=== PATIENT | male | born 1955 | race Caucasian/White ===

== ENCOUNTER 2021-05-10 17:55 | Emergency (ER) | payer MEDICARE, SELFPAY ==
[2021-05-10 18:43] VITALS: BP 161/97; PULSE 74; RESP 20; TEMP 37.1; O2SAT 95; BMI 33.6
--- NOTE | 2021-05-10 19:09 | HMH.EDUTC ---
[facility] [place] Clinical Impression: Sinusitis Qualifiers: Sinusitis location: unspecified location Chronicity: unspecified Qualified Code(s): J32.9 - Chronic sinusitis, unspecified Disposition: Home, Self-Care Condition on Discharge: Good Instructions: Sinusitis, DI for Sinusitis, Benzonatate Additional Instructions: ? Start antibiotic today. Be sure to complete entire prescription even if feeling better ? Monitor temp. Tylenol every 4 hours as needed and / or ibuprofen every 6 hours as needed ( As long as your primary care physician has told you that it ok to take both. For fever/aches/pains ER if no less than 101 despite Tylenol or Motrin ? Humidifier/vaporizer or hot steamy shower ? Inhaler every 4-6 hours as needed like we discussed. If unsure how to use it, ask pharmacist to demonstrate how. Should help open airways and improve cough, wheezing, and shortness of breath *Tessalon Perles will not cause drowsiness but use at bedtime to help stop cough so that you may get some rest. *Take steroid as prescribed. Helps with inflammation therefore, cough and wheezing. Follow directions on the package. Reviewed side effects. Patient reports taking them before. Follow up IMMEDIATELY for new or worsening of symptoms OR no noticeable improvement over the next 48-72 hours. 911 immediately for any life threatening symptoms such as chest pain or difficulty breathing Prescriptions: predniSONE [Deltasone 10mg tablet] 10 mg PO BID 5 Days #10 tab Transmission Status: Received by [id number] Azithromycin [Z-Marcelino 250mg Tab] 250 mg PO DIRECTED #6 tab Transmission Status: Received by [id number] Referrals: Provider,Referral, [Primary Care Provider] - As needed Time of Disposition: 19:43 Medical Decision Making - Lopez Inquiry Pt receiving controlled substance: No Lopez was queried for this patient: No Vital Signs: 05/10/21 18:43 05/10/21 19:32 Temperature 98.8 F 98.8 F Temperature Source Oral Pulse Rate 60 Pulse Rate [Left] 74 Respiratory Rate 20 20 Blood Pressure 161/97 H Blood Pressure [Right Arm] 161/97 H Blood Pressure Mean [Right Arm] 118 02 Sat by Pulse Oximetry 95 Orders (Tests/Meds): ED MEDICATIONS Discontinued Medications Generic Name Dose Route Start Last Admin Trade Name Freq PRN Reason Stop Dose Admin Ceftriaxone Sodium 1 gm 05/10/21 19:21 05/10/21 19:32 Ceftriaxone 1gm Vial IM 05/10/21 19:22 1 gm ONCE ONE Administration Lidocaine HCl 0 ml 05/10/21 19:21 05/10/21 19:31 Lidocaine 1% 5ml Pf Vial IM 05/10/21 19:22 2.5 ml ONCE ONE Administration Methylprednisolone Sodium Succinate 125 mg 05/10/21 19:21 05/10/21 19:31 Methylprednisolone Sod Succ 125mg Vial IM 05/10/21 19:22 125 mg ONCE ONE Administration [facility] [place] - General Stated complaint: cough congestion Time Seen by Provider: 05/10/21 19:10 Mode of Arrival: Ambulatory Source of Information: Patient Limitations: No Limitations Description of Symptoms (Recalled from Triage Doc. by RN): pt c/o a cough and congestion x1.5 wk. HEENT Symptoms (Recalled from RN notes): Yes (congestion) Resp Symptoms (Recalled from RN notes): Yes (cough) Skin Symptoms (Recalled from RN notes): No MS Symptoms (Recalled from RN notes): No Functional Status (Recalled from RN notes): wnl - History of Present Illness Provider Complaint: Patient states that he has benhving sinus congestion and pressure for about a week and half and cough States that he has history of asthma and when he gets coughing it causes his asthma to flare up States that he feels like it is draining in the back of his throat and causing his throat to be irritated and raw - Related Data Previous Rx's Medication Instructions Recorded Azithromycin [Z-Marcelino 250mg Tab] 250 mg PO DIRECTED #6 tab 05/10/21 predniSONE [Deltasone 10mg tablet] 10 mg PO BID 5 Days #10 tab 05/10/21 Allergies Allergy/AdvReac Type Severity Reactio
[2021-05-10 19:32] VITALS: BP 161/97; PULSE 60; RESP 20; TEMP 37.1
== END 2021-05-10 19:55 | disposition home or self-care (01) ==
PROVIDERS: Emergency Provider Nurse Practitioner
DX: J32.9 Chronic sinusitis, unspecified (principal); J45.909 Unspecified asthma, uncomplicated
CPT/HCPCS: 96372; 99202; G0463

== ENCOUNTER 2021-06-10 14:20 | Emergency (ER) | payer MEDICARE, SELFPAY ==
[2021-06-10 15:01] VITALS: BP 130/79; PULSE 107; RESP 18; O2SAT 96; BMI 34.7
[2021-06-10 16:25] VITALS: BP 130/79; PULSE 107; RESP 18; TEMP 37.6; O2SAT 96; BMI 34.8
[2021-06-10 16:34] LABS: UTC Influenza B Antigen Negative (Negative)
[2021-06-10 16:37] LABS: UTC Influenza A Antigen Positive (Negative)
--- NOTE | 2021-06-10 16:49 | HMH.EDUTC ---
[facility] [place] Clinical Impression: Influenza A Disposition: Home, Self-Care Condition on Discharge: Good Instructions: Influenza, DI for Influenza -- Adult, Oseltamivir Additional Instructions: ? Start Tamiflu today if you are going to take it. Discussed risk and possible benefits. ? Lots of rest ? Increase Fluids water, Gatorade, powerade, pedialyte,if /toddler/child ? Alternate Tylenol and / or ibuprofen as discussed for fever, aches, chills Follow up IMMEDIATELY with your family doctor for new or worsening Symptoms OR no noticeable improvement over the next 48-72 hours, 911 for difficulty or breathing ? You or your child area contagious until no fever, aches, chills for 24 hours with medication for symptoms ? Help Prevent the spread of influenza: ? Wash your hands often. Use soap and water. Wash your hands after you use the bathroom, change a child's diapers, or sneeze. Wash your hands before you prepare or eat food. Use gel hand cleanser that has 60% alcohol, when soap and water are not available. Do not touch your eyes, nose, or mouth unless you have washed your hands first. ? Cover your mouth when you sneeze or cough. Cough into a tissue or the bend of your arm. If you use a tissue, throw it away immediately and wash your hands. ? Clean shared items with a germ-killing hand fur cleaner. Clean table surfaces, doorknobs, and light switches. Do not share towels, silverware, and dishes with people who are sick. Wash bed sheets, towels, silverware, and dishes with soap and water. ? Wear a mask over your mouth and nose if you are sick. The face mask may help protect others from becoming infected with the flu. Wear the mask when in common areas of your home or if you seek care with a healthcare provider. ? Stay away from others if you are sick. Stay at home until 24 hours after your fever and symptoms are gone. You were tested for today for COVID19 your test result should be back in the next 24-48 hours, you may check your results on the [facility] My Health Portal if you have trouble logging on you may call You was given a handout with instructions for Self Quarantine and Self isolation for while you wait on test results and what to do if they are positive If you are positive the Health Dept will be contacting you also Make sure to take your Vitamins Vit. C Vit D and Zinc if you can take them Prescriptions: Albuterol Sulfate [Proventil-HFA 90mcg/puff Inh] 1 - 2 puffs IH Q6HP PRN #1 each PRN Reason: Shortness Of Breath Transmission Status: [facility] Promethazine/Dextromethorphan [Promethazine-Dm Syrup] 2.5 - 5 ml PO Q6H PRN #100 ml PRN Reason: Cough Transmission Status: Received by [facility] Oseltamivir Phosphate [Tamiflu 75mg Capsule] 75 mg PO BID #10 cap Transmission Status: Received by [facility] Referrals: Provider,Referral, MD [Primary Care Provider] - As needed Time of Disposition: 17:10 Medical Decision Making - Lopez Inquiry Pt receiving controlled substance: No Lopez was queried for this patient: No Vital Signs: 06/10/21 15:01 06/10/21 16:25 06/10/21 17:10 Temperature 99.6 F 99.6 F Temperature Source Oral Pulse Rate 107 H Pulse Rate [Left Radial] 107 H 107 H Respiratory Rate 18 18 18 Blood Pressure 130/79 Blood Pressure [Right Arm] 130/79 130/79 Blood Pressure Mean [Right Arm] 96 96 Blood Pressure Source [Right Arm] Automatic Cuff Automatic Cuff Blood Pressure Position [Right Arm] Sitting Sitting 02 Sat by Pulse Oximetry 96 96 Oxygen Delivery Method Room Air Room Air - Lab Data Lab results reviewed: Yes: I reviewed the patient's lab results. Lab Results 06/10/21 16:33: Influenza Type A Ag Positive A, Influenza Type B Ag Negative Orders (Tests/Meds): ORDERS Category Date Time Status Covid-19 Nasal PCR ([facility]) Routine Lab 06/10/21 16:20 Received Medical Decision Narrative: Patient states that he has a nebulizer at his storage unit Sta
[2021-06-10 17:10] VITALS: BP 130/79; PULSE 107; RESP 18; TEMP 37.6; O2SAT 96
== END 2021-06-10 17:19 | disposition home or self-care (01) ==
PROVIDERS: Emergency Provider Nurse Practitioner
DX: J10.1 Influenza due to other identified influenza virus with other respiratory manifestations (principal); Z20.822 Contact with and (suspected) exposure to COVID-19
CPT/HCPCS: G0463; 87804; 99202; C9803; U0003; U0005

== ENCOUNTER 2024-04-17 18:18 | Emergency (ER) | payer MEDICARE, SELFPAY ==
[2024-04-17 18:19] VITALS: BP 183/92; PULSE 84; RESP 20; TEMP 36.4; O2SAT 95; BMI 32.3
--- NOTE | 2024-04-17 18:21 | XR_ITS ---
PROCEDURE INFORMATION: Exam: XR Chest Exam date and time: 04/17/2024 6:25 PM Age: 69 years old Clinical indication: Cough and fever; Additional info: Cough, fever hypoxemia TECHNIQUE: Imaging protocol: Radiologic exam of the chest. Views: 2 views. COMPARISON: No relevant prior studies available. FINDINGS: Lungs: No consolidation. Pleural spaces: No significant pleural effusion. No pneumothorax. Heart/Mediastinum: No cardiomegaly. Bones/joints: No displaced fracture. Soft tissues: Unremarkable. IMPRESSION: No definite acute cardiopulmonary disease. If symptoms persist, consider CT for further evaluation.
[2024-04-17 18:25] VITALS: BP 183/92; PULSE 84; O2SAT 95
--- NOTE | 2024-04-17 18:25 | ECG_ITS ---
APPROVED REPORT Exam: Resting ECG HR:84 bpm ECG Measurements Heart Rate 84 AXES NH 142 P 65 QRSd 152 QRS -57 QT 378 T 85 QTc 419 Conclusion Sinus rhythm Left axis deviation (Branch block Electronically signed by : BLADIMIR ST, 04/17/2024 22:48:53
[2024-04-17 18:30] VITALS: BP 188/97; PULSE 85; O2SAT 95
[2024-04-17 18:31] LABS: Coronavirus 19, PCR Not Detected (NotDetected); Influenza A, PCR Not Detected (NotDetected); Influenza B, PCR Not Detected (NotDetected)
--- NOTE | 2024-04-17 18:49 | ED_ITS ---
Discharge Plan Disposition Chief Complaint: Upper Respiratory Infection Prescriptions Prescriptions: New doxycycline hyclate 100 mg capsule 100 mg PO BID 7 Days Qty: 14 0RF prednisone 20 mg tablet 40 mg PO DAILY 5 Days Qty: 10 0RF No Action promethazine-DM 120 ML syrup 2.5 - 5 ml PO Q6H PRN (Reason: Cough) Qty: 100 0RF oseltamivir 75 MG capsule 75 mg PO BID Qty: 10 0RF albuterol sulfate 200 PUFFS HFA aerosol inhaler 1 - 2 puffs IH Q6HP PRN (Reason: Shortness Of Breath) Qty: 1 0RF Referrals Follow up/Referrals: Provider,Referral, MD [Referring] - See instructions Activity Restrictions/Add. Instructions Additional Instructions/Restrictions: Call your family doctor to establish care for this visit to the emergency department and schedule follow-up within 48 hours to ensure improvement. If you have any worsening of your condition or any other concerning signs or symptoms, return to the emergency department or your primary care doctor for further evaluation. Prednisone each morning for the next 5 days, doxycycline for entire course. Clinical Impressions Clinical Impression: Bronchitis Print Language Print Language: Andorran Discharge ED Provider: Mike Broderick General Adult HPI General Chief complaint: Upper Respiratory Infection Stated complaint: sent by phy-low O2, cough fever Time Seen by Provider: 04/17/24 18:21 Mode of Arrival: Ambulatory Source of Information: Patient Limitations: No Limitations Description of Symptoms (Recalled from ER Triage Doc. by RN): States he went to the doctor today and they told him that his oxygen saturation was low and that he had a temp of 99.3. Complaint of cough and congestion for 1 month. History of Present Illness HPI narrative: Please note that above description of symptoms, in this electronic medical record under categorization of recalled from ER triage doctor by RN are reflective of an initial nursing assessment, however, is not reflective of my full history and physical exam that was personally taken and clarified. Consequentially, this preceding description of symptoms, which may include the patient's categorized chief complaint in the EMR, do not reflect my personal clinical impression, and the ultimate description of history of present illness and patient stated complaints should be deferred to this section of the note. Unless stated otherwise or congruent with this section of the note, additional signs, symptoms, or incongruence should be interpreted as inaccurate with my clinical impression. Related Data Previous Rx's ?Medication ?Instructions ?Recorded albuterol sulfate 90 mcg/actuation 1 - 2 puffs IH Q6HP PRN Shortness 06/10/21 aerosol inhaler Of Breath #1 ea oseltamivir 75 mg capsule 75 mg PO BID #10 caps 06/10/21 promethazine-DM 6.25 mg-15 mg/5 mL 2.5 - 5 ml PO Q6H PRN Cough #100 mL 06/10/21 oral syrup doxycycline hyclate 100 mg capsule 100 mg PO BID 7 days #14 caps 04/17/24 prednisone 20 mg tablet 40 mg (2 x 20 mg) PO DAILY 5 days 04/17/24 #10 tabs Allergies Allergy/AdvReac Type Severity Reaction Status Date / Time No Known Allergies Allergy Verified 05/10/21 18:48 [facility] Disclaimer: The information contained in this section may have been updated after the patient was seen, as this information can be updated by other users. Social History Smoking Status: Former smoker alcohol intake: never current occupational status: retired Travel in the last 8 weeks: None ROS Obtained: Yes All systems reviewed & no additional complaints except as documented Physical Exam General General appearance: alert and obese Head Head exam: atraumatic and normocephalic Eye Eye exam: Present normal appearance, PERRL and EOMI Neck Neck exam: Present normal inspection, full ROM and trachea midline Respiratory Respiratory exam: Present wheezes (Isolated wheezes right sided posteriorly and inferiorly. Intermittently coughing); Absent respiratory distress, stridor, accessory muscle use or prolonged expiratory phase Cardiovascular Cardiovascular exam: Present regular rate, normal rhythm and other (Pulses equal symmetric in upper and lower extremities) Abdominal Exam Abdominal exam: Present soft; Absent distention, tenderness or pulsatile mass Extremities Exam Extremities exam: Absent edema Neurological Exam Neurological exam: Present alert, oriented X3 and CN II-XII intact; Absent motor sensory deficit Skin Skin exam: Present warm and dry; Absent diaphoresis or erythema Medical Decision Making Medical Records Medical records reviewed: Yes I reviewed the patient's medical records. Screening: Per USPSTF and CDC recommendations, given the prevalence of disease in our region, it is our hospital?s policy to screen for HIV and viral Hepatitis for all patients aged 18 and over and those with ongoing risk factors. Lopez Inquiry Pt receiving controlled substance: No Lopez was queried for this patient: No Vital Signs: 04/17/24 18:19 04/17/24 18:25 04/17/24 18:30 Temperature 97.6 F Temperature Source Oral Pulse Rate 84 85 Pulse Rate [Radial] 84 Respiratory Rate 20 Blood Pressure 183/92 H 188/97 H Blood Pressure [Right Arm] 183/92 H Blood Pressure Mean Blood Pressure Mean [Right Arm] 122 Blood Pressure Source [Right Arm] Automatic Cuff Blood Pressure Position [Right Arm] Sitting 02 Sat by Pulse Oximetry 95 95 95 Oxygen Delivery Method Room Air Room Air Room Air 04/17/24 19:00 Temperature Temperature Source Pulse Rate 95 H Pulse Rate [Radial] Respiratory Rate Blood Pressure 128/69 Blood Pressure [Right Arm] Blood Pressure Mean 88 Blood Pressure Mean [Right Arm] Blood Pressure Source [Right Arm] Blood Pressure Position [Right Arm] 02 Sat by Pulse Oximetry 96 Oxygen Delivery Method Lab Data Lab Results 04/17/24 18:26: SARS-CoV-2 (PCR) Not detected, Influenza A Untype (PCR) Not detected, Influenza Type B (PCR) Not detected 04/17/24 18:42: VBG pH 7.37, VBG pCO2 43.1, VBG pO2 50.8 H, VBG HCO3 24.1, VBG Total CO2 25.5, VBG O2 Saturation 85.9 H, VBG Base Excess -1.2, VBG Lactic Acid 2.0 04/17/24 18:46: WBC 11.8 H, RBC 4.58 L, Hgb 14.7, Hct 42.9, MCV 93.6, MCH 32.2 H , MCHC 34.4, RDW 12.8, Plt Count 232, MPV 7.6, Neut % (Auto) 74.8, Lymph % (Auto) 17.9, Glynn % (Auto) 5.2, Eos % (Auto) 1.7, Baso % (Auto) 0.4, Neut # (Auto) 8.8 H, Lymph # (Auto) 2.1, Glynn # (Auto) 0.6, Eos # (Auto) 0.2, Baso # (Auto) 0.1, Sodium 135 L, Potassium 4.1, Chloride 102, Carbon Dioxide 26, Anion Gap 11.1, BUN 10, Creatinine 0.80, Estimated Creat Clear 84, Estimated GFR 95, Est GFR ( Amer) 115, Glucose 148 H, Calcium 9.3, Total Bilirubin 0.6, AST 22, ALT 30, Alkaline Phosphatase 48, Troponin I < 0.01, NT-Pro-B Natriuret Pep 75.9, Total Protein 6.8, Albumin 3.9, Globulin 2.9, Albumin/Globulin Ratio 1.3 04/17/24 18:46 04/17/24 18:46 Orders (Tests/Meds): ED MEDICATIONS Generic Name Dose Route Start Last Admin Trade Name Freq PRN Reason Stop Dose Admin Sodium Chloride 10 ml 04/17/24 18:49 Sodium Chloride 0.9% 10ml Flush Syringe IV 05/17/24 18:48 NEEDED PRN Maintain IV Site Discontinued Medications Generic Name Dose Route Start Last Admin Trade Name Freq PRN Reason Stop Dose Admin Albuterol/Ipratropium 9 ml 04/17/24 18:21 04/17/24 18:51 Ipratropium/Albuterol 3 Ml Neb IH 04/17/24 18:22 9 ml ONCE ONE Administration Methylprednisolone Sodium Succinate 125 mg 04/17/24 18:21 04/17/24 18:51 Methylprednisolone Sod Succ 125mg Vial IV 04/17/24 18:22 125 mg ONCE ONE Administration ORDERS Category Date Time Status CXR 2 view (NOT portable) [XR chest 2V] Stat Exams 04/17/24 18:21 Completed Complete Blood Count Auto Diff Stat Lab 04/17/24 18:46 Completed Comprehensive Metabolic Panel Stat Lab 04/17/24 18:46 Completed HIV (1&2) Antibody Rapid Stat Lab 04/17/24 18:46 Received Hep C Ab with Reflex to RNA Stat Lab 04/17/24 18:46 Received NT Pro Brain Natriuretic Pep. Stat Lab 04/17/24 18:46 Completed Rapid PCR Covid and Flu A/B Stat Lab 04/17/24 18:26 Completed Trop I [Troponin I] Stat Lab 04/17/24 18:46 Completed Troponin I Q3H Lab 04/17/24 21:45 Ordered Troponin I Q3H Lab 04/18/24 00:45 Ordered Blood Culture Stat Micro 04/17/24 18:46 Received Venous Blood Gas Stat RT 04/17/24 18:42 Completed HEART Score History (anamnesis): Slightly suspicious ECG: Normal Age: >65 years Risk factors: 1-2 risk factors Troponin: </= normal limit HEART Score: 3 Medical Decision Narrative: 69-year-old male history of left bundle branch block, COPD not currently smoking or on home oxygen presenting with cough. Patient states has had a cough for over 4 weeks at this point. Saw his family doctor today, family doctor recommended come to the emergency department for further evaluation given fever, of 99 ?F and persistent cough. Patient states cough is worse at night, still persistent throughout the day. Producing green sputum at this point. No objective fevers more than 100.4, no vomiting, diarrhea, chest pain, shortness of breath, nausea or vomiting. No other acute symptoms. History was obtained via conversation with patient and family. On arrival, patient hemodynamically stable, alert, oriented x4, appropriate, GCS 15, moving all extremities spontaneously, pupils equal and reactive to light. Full physical exam performed and significant for well-appearing male no acute distress. Differential includes bronchitis, bacterial versus viral pneumonia, among others. Patient placed on continuous cardiac monitoring and continuous pulse ox with initial blood pressure 183/92, heart rate 84, saturation 95% on room air. Independent interpretation of EKG shows sinus rhythm with left axis deviation and left bundle branch block. MI 142, QRS 152, QTc 419. No acute ischemic change.. Patient was given DuoNebs and Solu-Medrol for symptomatic management and correction of underlying abnormalities. Workup independently interpreted and significant for mild leukocytosis 11.8 with neutrophilia. Patient's chemistry nonactionable. Troponin and BNP negative. VBG with what appears to be chronic respiratory acidosis versus acute respiratory acidosis with normal pH. On independent interpretation of imaging, no acute cardiopulmonary space disease on chest x-ray. See radiology read for full review of final results. Heart score 3. On reevaluation, patient resting company, no longer coughing. Initial dose of doxycycline given. Given patient presentation, workup, history, this most likely represents chronic bronchitis in the setting of COPD. Because patient at baseline without signs or symptoms of clinical decompensation, deemed appropriate for discharge. Results were relayed to patient who voiced understanding and were agreeable to outpatient management and follow up. I discussed my clinical impression with patient and answered all questions. At this time, the evidence for any other entities in the differential is insufficient to warrant any further testing or ED observation. This was explained as well. Advisory was given that persistent or worsening symptoms require further evaluation. I confirmed the understanding of this discussion. It Help Desk Manager disclaimer Much of this encounter note is an electronic contract technical writer spoken language to printed text. Electronic contract technical writer of the spoken language may permit errors. Although I have reviewed the note, some errors may still exist. Critical Care Critical Care Time Critical Care Time: No
[2024-04-17] MEDS: IPRATROPIUM/ALBUTEROL 3 ML NEB 9 ML IH (18:51)
[2024-04-17] MEDS: METHYLPREDNISOLONE SOD SUCC 125MG VIAL 125 MG IV (18:51)
[2024-04-17 18:56] LABS: VBG Base Excess -1.2 mmol/L (-2.4-2.3); VBG HCO3 24.1 mmol/L (23-30); VBG Oxygen Saturation 85.9 % (50-70); VBG PCO2 43.1 mmol/L (35-51); VBG PH 7.37 mmol/L (7.31-7.41); VBG PO2 50.8 mmol/L (28-40); VBG Total CO2 25.5 mmol/L (23-27)
[2024-04-17 18:59] LABS: Basophils # 0.1 K/mm3 (0-0.2); Basophils % 0.4 % (0.1-2.0); Eosinophils # 0.2 K/mm3 (0.0-0.4); Eosinophils % 1.7 % (0.1-12.0); Hematocrit 42.9 % (42.0-52.0); Hemoglobin 14.7 g/dL (14.1-18.0); Lymphocytes # 2.1 K/mm3 (0.7-4.5); Lymphocytes % 17.9 % (10-50); Mean Corpuscular HGB Conc 34.4 g/dL (31.8-35.4); Mean Corpuscular Hemoglobin 32.2 pg (27.0-31.2); Mean Corpuscular Volume 93.6 fl (80-94); Mean Platelet Volume 7.6 fl (7.4-10.4); Monocytes # 0.6 K/mm3 (0.1-1.0); Monocytes % 5.2 % (1.7-9.3); Neutrophils # 8.8 K/mm3 (1.8-7.8); Neutrophils % 74.8 % (37.0-80.0); Platelet Count 232 K/mm3 (142-424); Red Blood Count 4.58 M/mm3 (4.60-6.20); Red Cell Distribution Width 12.8 % (11.5-17.5); White Blood Count 11.8 K/mm3 (4.8-10.8)
[2024-04-17 19:00] VITALS: BP 128/69; PULSE 95; O2SAT 96
[2024-04-17 19:04] LABS: Albumin Level 3.9 g/dl (3.5-5.0); Chloride 102 mmol/L (98-107); Sodium 135 mmol/L (136-145)
[2024-04-17 19:05] LABS: Potassium 4.1 mmoL/L (3.5-5.1)
[2024-04-17 19:07] LABS: Alanine Aminotransferase 30 U/L (12-78); Albumin/Globulin Ratio 1.3 (1.1-1.8); Alkaline Phosphatase 48 U/L (38-126); Anion Gap 11.1 mEq/L (5-15); Aspartate Amino Transferase 22 U/L (17-59); Bilirubin,Total 0.6 mg/dl (0.2-1.3); Blood Urea Nitrogen 10 mg/dl (9-20); Carbon Dioxide 26 mmol/L (22.0-30.0); Creatinine Clearance Estimated 84 mL/min (50-200); Estimated Glomerular Filt Rate 95 ml/min (>60); GFR (African American) 115 ML/MIN (>60); Globulin 2.9 g/dL (1.3-3.2); Total Protein,Serum 6.8 g/dl (6.3-8.2)
[2024-04-17 19:08] LABS: Calcium 9.3 mg/dl (8.4-10.2); Glucose 148 mg/dl (74-100)
[2024-04-17 19:18] LABS: NT Pro Brain Natriuretic Pep. 75.9 pg/mL (0-125)
[2024-04-17 19:24] LABS: Troponin I < 0.01 ng/ml (0.00-0.034)
[2024-04-17 19:45] VITALS: BP 116/68; PULSE 104; O2SAT 91
[2024-04-17 19:56] VITALS: BP 120/70; PULSE 98; RESP 18; TEMP 36.6; O2SAT 94
[2024-04-17] MEDS: DOXYCYCLINE HYCL 100 MG TABLET PO (20:02)
[2024-04-17 21:02] LABS: HIV (1&2) Antibody Rapid NONREACTIVE (NONREACTIVE)
[2024-04-19 08:34] LABS: HCV Ab Non Reactive (Non Reactive)
== END 2024-04-17 20:04 | disposition home or self-care (01) ==
PROVIDERS: Emergency Provider Emergency Medicine; PCP Family Medicine
DX: J40 Bronchitis, not specified as acute or chronic (principal)
CPT/HCPCS: 71046; 80053; 82803; 83880; 84484; 85025; 86803; 87040; 87389; 87636; 93005; 99284; J2919; J7620